=== PATIENT | male | born 1945 | race Caucasian/White ===

== ENCOUNTER 2019-09-01 11:12 | Emergency (ER) | payer MEDICARE, OTHER ==
[~2019-09-01] VITALS: Ht 170.2 cm; Wt 99.8 kg
[~2019-09-01 11:12] MED LIST: IBUP800; TERA5
[2019-09-01 12:04] LABS: BASOPHILS ABSOLUTE AUTO 0.02 K/mm3 (0.00-0.23); BASOPHILS PERCENT AUTO 0 % (0-2); EOSINOPHILS ABSOLUTE AUTO 0.13 K/mm3 (0.00-0.68); EOSINOPHILS PERCENT AUTO 2 % (0-6); Hematocrit 47.7 % (37.0-53.0); IMMATURE GRAN ABSOLUTE AUTO 0.03 K/mm3 (0.00-0.10); IMMATURE GRAN PERCENT AUTO 0 % (0-1); LYMPHOCYTES ABSOLUTE AUTO 1.36 K/mm3 (0.84-5.20); LYMPHOCYTES PERCENT AUTO 18 % (21-46); MONOCYTES ABSOLUTE AUTO 0.42 K/mm3 (0.16-1.47); MONOCYTES PERCENT AUTO 6 % (4-13); Mean Corpuscular HGB 30.4 pg (26.0-34.0); Mean Corpuscular HGB Conc 33.5 g/dL (31.5-36.5); Mean Corpuscular Volume 91 fL (80-100); Mean Platelet Volume 9.8 fL (9.1-12.4); NEUTROPHILS ABSOLUTE AUTO 5.53 K/mm3 (1.96-9.15); NEUTROPHILS PERCENT AUTO 74 % (41-73); Platelet Count 223 K/mm3 (150-400); RDW Coefficient Variation 13.2 % (11.7-14.2); Red Blood Cell Count 5.27 M/mm3 (4.30-5.90); White Blood Cell Count 7.49 K/mm3 (4.00-11.30)
[2019-09-01 12:20] LABS: Alanine Aminotransfer (ALT/SGP 18 U/L (12-78); Albumin, Blood 3.9 g/dL (3.4-5.0); Albumin/Globulin Ratio 1.1 (0.8-1.8); Alk Phos 72 U/L (50-136); Anion Gap 7 mmol/L (6-16); Aspartate Aminotrans (AST/SGOT 18 U/L (12-37); Bilirubin, Total 0.9 mg/dL (0.1-1.0); Blood Urea Nitrogen 19 mg/dL (8-24); Bun/Creatinine Ratio 22.9 (12.0-20.0); CO2, Blood 28 mmol/L (21-32); Calcium, Blood 9.3 mg/dL (8.5-10.1); Chloride, Blood 103 mmol/L (98-108); Creatinine, Blood 0.83 mg/dL (0.60-1.20); Globulin, Blood 3.4 g/dL (2.2-4.0); Glomerular Filtration Rate >60 (60-); Glucose, Blood 103 mg/dL (70-99); Potassium, Blood 4.1 mmol/L (3.5-5.5); Sodium, Blood 138 mmol/L (136-145); Total Protein, Blood 7.3 g/dL (6.4-8.2)
[2019-09-01] MEDS ORDERED: Roxicodone5 MG PO (13:01)
[2019-09-01] MEDS ORDERED: Arthritis Pai42.5 GM TOP (13:01)
== END 2019-09-01 13:18 | disposition home or self-care (01) ==
LOC: ER 11:12
PROVIDERS: Emergency Medicine
DX: K40.20 Bilateral inguinal hernia, without obstruction or gangrene, not specified as recurrent (principal); M25.552 Pain in left hip; I10 Essential (primary) hypertension
CPT/HCPCS: 36415; 80053; 83605; 85025; 99283

== ENCOUNTER 2020-11-21 10:44 | Emergency (ER) | payer MEDICARE, OTHER ==
[~2020-11-21] VITALS: Ht 170.2 cm; Wt 97.5 kg
[~2020-11-21 10:44] MED LIST changes: +ACET500; +Arthritis Pai42.5 GM TOP; +Aspir 8181 MG; +CARV6.25; +HYDR1TAB94; +Roxicodone5 MG PO; +SPIR25
[2020-11-21] MEDS ORDERED: IBUP400 PO (11:47)
== END 2020-11-21 12:10 | disposition home or self-care (01) ==
LOC: ER 10:44
DX: M79.661 Pain in right lower leg (principal); I10 Essential (primary) hypertension; Z79.82 Long term (current) use of aspirin
CPT/HCPCS: 93971; 99283-25